=== PATIENT | female | born 1940 | race Caucasian/White ===

== ENCOUNTER 2018-07-24 12:33 | Day surgery (SDC) | payer MEDICARE, BC ==
[~2018-07-24 12:33] MED LIST: MIDAZOLAM 2 MG/2 ML SOL ONE
[2018-07-24 13:10] VITALS: RESP 16
[2018-07-24] MEDS: CYCLOPENTOLATE 1% SOL ONE ×3 (13:15→13:29)
[2018-07-24] MEDS ORDERED: KETOROLAC/HOME 0.5% SOL LEFTEYE ONE ×3 (13:15→13:29)
[2018-07-24] MEDS: PHENYLEPHRINE HCL 10% OPHTHAL SOL ONE ×3 (13:15→13:29)
[2018-07-24] MEDS: TROPICAMIDE 1% OPHTH SOL ONE ×3 (13:15→13:29)
[2018-07-24] MEDS ORDERED: MOXIFLOXACIN-HOME SOL LEFTEYE ONE ×2 (13:24→13:29)
[2018-07-24] MEDS: PROPARACAINE HCL 0.5% OPHTHALMIC SOL ONE ×2 (13:29→14:24)
[2018-07-24] MEDS ORDERED: LIDOCAINE HCL 2% MPF 10 ML SOL ONE (14:18)
[2018-07-24] MEDS ORDERED: BSS W/ 0.5 MG P.F. EPI 1 BOTTLE ONE (14:18)
[2018-07-24] MEDS ORDERED: POVIDONE IODINE 5% SOL ONE (14:18)
[2018-07-24] MEDS ORDERED: ACETAZOLAMIDE 250 MG PO ONE (14:32)
[2018-07-24] MEDS ORDERED: LABETALOL HYDROCHLORIDE 5 MG/ML SOL IV ONE (14:43)
[2018-07-24] MEDS ORDERED: HYDRALAZINE HYDROCHLORIDE 20 MG/ML SOL ONE (14:46)
[2018-07-24 14:58] VITALS: PULSE 73; TEMP 97.3; O2SAT 98
[2018-07-24 15:16] VITALS: BP 152/70
== END 2018-07-24 15:34 | disposition home or self-care (01) | DRG 125 ==
LOC: SURG 12:33
PROVIDERS: ATTEND Ophthalmology
DX: H25.89 Other age-related cataract (principal); E11.9 Type 2 diabetes mellitus without complications
CPT/HCPCS: J0360; J2250; A9270-GY; J3490

== ENCOUNTER 2018-08-03 21:53 | Emergency (ER) | payer MEDICARE, BC ==
[2018-08-03 22:29] LABS: BASOPHILS % (AUTO) 2 % (0-3); EOSINOPHILS % (AUTO) 3 % (0-9); HEMATOCRIT 44 % (35-47); HEMOGLOBIN 14.4 gm/dl (12.0-15.5); LYMPHOCYTES % (AUTO) 45.4 % (10-50); MEAN CORPUSCULAR HEMOGLOBIN 30.5 pg (27.0-32.0); MEAN CORPUSCULAR HGB CONC 33.1 gm/dl (32.0-36.0); MEAN CORPUSCULAR VOLUME 92 fL (81-99); MONOCYTES % (AUTO) 12.8 % (0-12); NEUTROPHILS % (AUTO) 37.5 % (37-80)
[2018-08-03 22:38] LABS: CALCIUM 8.5 mg/dl (8.5-10.1); CARBON DIOXIDE 20.2 mEq/L (21-32); CREATININE 1.18 mg/dl (0.60-1.00); POTASSIUM 3.7 mMol/L (3.5-5.1); TOTAL PROTEIN 7.3 gm/dl (6.4-8.2)
[2018-08-03] MEDS ORDERED: SODIUM CHLORIDE 0.9% 500 ML 500 ML IV ONE ×2 (22:47→23:56)
[2018-08-03 22:54] LABS: APPEARANCE,URINE Slightly Cloudy; BILIRUBIN,URINE 1+ (NEGATIVE); COLOR,URINE Dark yellow; GLUCOSE, URINE (UA) NEGATIVE (NEGATIVE); KETONES,URINE NEGATIVE (NEGATIVE); LEUKOCYTE ESTERASE ,URINE NEGATIVE (NEGATIVE); NITRATE,URINE NEGATIVE (NEGATIVE); OCCULT BLOOD,URINE NEGATIVE (NEG-TRACE); UROBILINOGEN,URINE 0.2 (0.2-1.0 EU)
[2018-08-03 22:57] LABS: ICTOTEST,URINE NEGATIVE (NEGATIVE)
[2018-08-03 23:04] LABS: BACTERIA 3+ (< 1+); CRYSTALS NEGATIVE (0-3 AVE/HPF); RBC,URINE 0-1 (0-3AV/HPF)
[2018-08-04 01:03] VITALS: BP 143/75; PULSE 61; RESP 23; O2SAT 92
[2018-08-04 01:04] VITALS: TEMP 96.7
== END 2018-08-04 00:39 | disposition home or self-care (01) | DRG 153 ==
LOC: ED 21:53
DX: J11.1 Influenza due to unidentified influenza virus with other respiratory manifestations (principal); R53.1 Weakness
CPT/HCPCS: 71046; 80053; 81001; 82962; 83880; 85025; 93005; 96365; 99283; 99285

== ENCOUNTER 2019-04-08 08:01 | Inpatient (IN) | payer MEDICARE, BC ==
[2019-04-08] MEDS ORDERED: PROMETHAZINE HYDROCHLORIDE 25 MG/ML SOL IV ONE (08:24)
[2019-04-08] MEDS ORDERED: PROMETHAZINE HYDROCHLORIDE 25 MG/ML SOL ONE (08:25)
[2019-04-08] MEDS: SODIUM CHLORIDE 0.9% FLUSH 10 ML SOL IV PRN ×2 (08:30→08:38)
[2019-04-08] MEDS ORDERED: HYDROMORPHONE 1 MG/ML SYRINGE IV PRN ×2 (08:32→19:09)
[2019-04-08] MEDS ORDERED: HYDROMORPHONE 1 MG/ML SYRINGE ONE (08:33)
[2019-04-08 09:44] LABS: BASOPHILS % (AUTO) 1 % (0-3); EOSINOPHILS % (AUTO) 3 % (0-9); HEMATOCRIT 45 % (35-47); HEMOGLOBIN 14.6 gm/dl (12.0-15.5); LYMPHOCYTES % (AUTO) 50.5 % (10-50); MEAN CORPUSCULAR HGB CONC 32.6 gm/dl (32.0-36.0); MEAN CORPUSCULAR VOLUME 92 fL (81-99); MONOCYTES % (AUTO) 8.8 % (0-12); NEUTROPHILS % (AUTO) 36.3 % (37-80)
[2019-04-08 10:00] LABS: ALBUMIN 3.3 gm/dl (3.4-5.0); BILIRUBIN,TOTAL 0.5 mg/dl (0.2-1.0); CALCIUM 8.8 mg/dl (8.5-10.1); CARBON DIOXIDE 25.7 mEq/L (21-32); CREATININE 0.73 mg/dl (0.60-1.00); POTASSIUM 3.8 mMol/L (3.5-5.1); TOTAL PROTEIN 7.1 gm/dl (6.4-8.2)
[2019-04-08] MEDS ORDERED: SODIUM CHLORIDE 0.9% 1000ML 1,000 ML IV ONE (12:05)
[2019-04-08] MEDS ORDERED: ONDANSETRON HCL 4 MG/2 ML SOL IV PRN (14:29)
[2019-04-08] MEDS ORDERED: ENOXAPARIN 40 MG SOL SC ONE (14:46)
[2019-04-08] MEDS: APAP/HYDROCODONE 1 EACH TABLET PO PRN ×2 (14:51→20:10)
[2019-04-08] MEDS: SODIUM CHLORIDE 0.9% FLUSH 10 ML SOL IV SCH ×2 (14:54→23:06)
[2019-04-08] MEDS: ENOXAPARIN 40 MG SOL SC SCH (14:54)
[2019-04-09] MEDS: APAP/HYDROCODONE 1 EACH TABLET PO PRN ×5 (01:07→20:35)
[2019-04-09] MEDS: LEVOTHYROXINE SODIUM 50 MCG TAB PO SCH (06:17)
[2019-04-09] MEDS: SODIUM CHLORIDE 0.9% FLUSH 10 ML SOL IV SCH ×3 (06:18→22:49)
[2019-04-09 08:39] LABS: BASOPHILS % (AUTO) 1 % (0-3); EOSINOPHILS % (AUTO) 2 % (0-9); HEMATOCRIT 38 % (35-47); HEMOGLOBIN 12.2 gm/dl (12.0-15.5); LYMPHOCYTES % (AUTO) 48.2 % (10-50); MEAN CORPUSCULAR HEMOGLOBIN 30.2 pg (27.0-32.0); MEAN CORPUSCULAR HGB CONC 32.5 gm/dl (32.0-36.0); MEAN CORPUSCULAR VOLUME 93 fL (81-99); MONOCYTES % (AUTO) 14.2 % (0-12); NEUTROPHILS % (AUTO) 34.9 % (37-80)
[2019-04-09] MEDS: GLIMEPIRIDE 2 MG TAB PO SCH (08:46)
[2019-04-09] MEDS: LISINOPRIL 20 MG TAB PO SCH (08:46)
[2019-04-09] MEDS: SODIUM CHLORIDE 0.9% FLUSH 10 ML SOL IV PRN (08:46)
[2019-04-09] MEDS: ENOXAPARIN 40 MG SOL SC SCH (08:48)
[2019-04-09 08:52] LABS: CALCIUM 8.1 mg/dl (8.5-10.1); CREATININE 0.84 mg/dl (0.60-1.00); POTASSIUM 4.2 mMol/L (3.5-5.1)
[2019-04-09 08:57] LABS: CARBON DIOXIDE 26.9 mEq/L (21-32)
[2019-04-09] MEDS ORDERED: ENOXAPARIN 40 MG SOL SC SCH (09:00)
[2019-04-09] MEDS: SENNOSIDES A AND B 8.6 MG TAB PO SCH ×2 (09:38→20:35)
[2019-04-09] MEDS ORDERED: APAP/HYDROCODONE 1 EACH TABLET PO PRN (13:28)
[2019-04-10] MEDS: APAP/HYDROCODONE 1 EACH TABLET PO PRN ×5 (01:16→21:14)
[2019-04-10] MEDS: SODIUM CHLORIDE 0.9% FLUSH 10 ML SOL IV SCH ×3 (06:10→23:56)
[2019-04-10] MEDS: LEVOTHYROXINE SODIUM 50 MCG TAB PO SCH (06:10)
[2019-04-10 07:14] LABS: BASOPHILS % (AUTO) 1 % (0-3); EOSINOPHILS % (AUTO) 2 % (0-9); HEMATOCRIT 37 % (35-47); HEMOGLOBIN 12.2 gm/dl (12.0-15.5); LYMPHOCYTES % (AUTO) 42.3 % (10-50); MEAN CORPUSCULAR HEMOGLOBIN 30.8 pg (27.0-32.0); MEAN CORPUSCULAR VOLUME 93 fL (81-99); MONOCYTES % (AUTO) 13.7 % (0-12); NEUTROPHILS % (AUTO) 40.8 % (37-80)
[2019-04-10 07:24] LABS: CALCIUM 8.2 mg/dl (8.5-10.1); CREATININE 0.8 mg/dl (0.60-1.00); POTASSIUM 4.2 mMol/L (3.5-5.1)
[2019-04-10] MEDS: LISINOPRIL 20 MG TAB PO SCH (09:39)
[2019-04-10] MEDS: GLIMEPIRIDE 2 MG TAB PO SCH (09:39)
[2019-04-10] MEDS: SENNOSIDES A AND B 8.6 MG TAB PO SCH ×2 (09:39→20:01)
[2019-04-10] MEDS: ENOXAPARIN 40 MG SOL SC SCH (09:40)
[2019-04-10] MEDS: SODIUM CHLORIDE 0.9% FLUSH 10 ML SOL IV PRN (09:41)
[2019-04-11 02:53] VITALS: RESP 18
[2019-04-11] MEDS: LEVOTHYROXINE SODIUM 50 MCG TAB PO SCH (06:23)
[2019-04-11] MEDS: SODIUM CHLORIDE 0.9% FLUSH 10 ML SOL IV SCH (06:23)
[2019-04-11 07:58] VITALS: BP 114/68; TEMP 99
[2019-04-11] MEDS: GLIMEPIRIDE 2 MG TAB PO SCH (08:41)
[2019-04-11] MEDS: ENOXAPARIN 40 MG SOL SC SCH (08:42)
[2019-04-11] MEDS: SENNOSIDES A AND B 8.6 MG TAB PO SCH (08:42)
[2019-04-11] MEDS: LISINOPRIL 20 MG TAB PO SCH (08:42)
[2019-04-11 09:59] VITALS: PULSE 81; O2SAT 98
== END 2019-04-11 13:32 | disposition swing bed (61) | DRG 563 ==
LOC: ED 08:01 → ACUTE CARE 12:28
PROVIDERS: ADMIT Family Medicine; ATTEND Family Medicine
PROC: F01ZBFZ Bed Mobility Assessment using Assistive, Adaptive, Supportive or Protective Equipment (ICD-10-PCS; principal; 2019-04-08)
PROC: F01K0FZ Muscle Performance Assessment of Musculoskeletal System - Upper Back / Upper Extremity using Assistive, Adaptive, Supportive or Protective Equipment (ICD-10-PCS; 2019-04-09)
PROC: F01K5YZ Range of Motion and Joint Integrity Assessment of Musculoskeletal System - Upper Back / Upper Extremity using Other Equipment (ICD-10-PCS; 2019-04-09)
DX: S42.012A Anterior displaced fracture of sternal end of left clavicle, initial encounter for closed fracture (principal); S82.141A Displaced bicondylar fracture of right tibia, initial encounter for closed fracture; S72.414A Nondisplaced unspecified condyle fracture of lower end of right femur, initial encounter for closed fracture; W10.8XXA Fall (on) (from) other stairs and steps, initial encounter; M25.512 Pain in left shoulder; M25.561 Pain in right knee; R40.2362 Coma scale, best motor response, obeys commands, at arrival to emergency department; R40.2142 Coma scale, eyes open, spontaneous, at arrival to emergency department; R40.2252 Coma scale, best verbal response, oriented, at arrival to emergency department; E11.9 Type 2 diabetes mellitus without complications; I10 Essential (primary) hypertension; E03.9 Hypothyroidism, unspecified; M79.641 Pain in right hand; S62.511A Displaced fracture of proximal phalanx of right thumb, initial encounter for closed fracture; W10.9XXA Fall (on) (from) unspecified stairs and steps, initial encounter
CPT/HCPCS: 36415; 70450; 71250; 72125; 73130; 73562; 73721; 74176; 80048; 80053; 82962; 85025; 93005; 94150; 94640; 94762; 96365; 96374; 96375; 99223; 99291; G0390; J1650; J2550; A4450; A9270-GY; J1170; L1830

== ENCOUNTER 2019-04-11 11:06 | Inpatient (IN) | payer MEDICARE, BC ==
[2019-04-11] MEDS ORDERED: ACETAMINOPHEN 500 MG 500 MG TAB PO PRN (14:23)
[2019-04-11] MEDS: APAP/HYDROCODONE 1 EACH TABLET PO PRN ×2 (14:56→21:33)
[2019-04-11] MEDS: SENNOSIDES A AND B 8.6 MG TAB PO SCH (21:32)
[2019-04-12] MEDS: LEVOTHYROXINE SODIUM 50 MCG TAB PO SCH (06:11)
[2019-04-12] MEDS: APAP/HYDROCODONE 1 EACH TABLET PO PRN ×2 (07:16→14:59)
[2019-04-12] MEDS: GLIMEPIRIDE 2 MG TAB PO SCH (08:21)
[2019-04-12] MEDS: SENNOSIDES A AND B 8.6 MG TAB PO SCH ×2 (08:21→20:46)
[2019-04-12] MEDS: LISINOPRIL 20 MG TAB PO SCH (08:21)
[2019-04-12] MEDS: ENOXAPARIN 40 MG SOL SC SCH (08:52)
[2019-04-12] MEDS: FISH OIL 500 MG CAP PO SCH ×2 (11:33→11:40)
[2019-04-12] MEDS: MULTIVITAMIN2 1 EA TAB PO SCH (11:41)
[2019-04-13] MEDS: APAP/HYDROCODONE 1 EACH TABLET PO PRN ×3 (01:25→23:45)
[2019-04-13] MEDS: LEVOTHYROXINE SODIUM 50 MCG TAB PO SCH (07:07)
[2019-04-13] MEDS: SENNOSIDES A AND B 8.6 MG TAB PO SCH ×2 (10:11→21:24)
[2019-04-13] MEDS: GLIMEPIRIDE 2 MG TAB PO SCH (10:11)
[2019-04-13] MEDS: FISH OIL 500 MG CAP PO SCH (10:11)
[2019-04-13] MEDS: LISINOPRIL 20 MG TAB PO SCH (10:11)
[2019-04-13] MEDS: ENOXAPARIN 40 MG SOL SC SCH (10:12)
[2019-04-13] MEDS: MULTIVITAMIN2 1 EA TAB PO SCH (11:48)
[2019-04-14] MEDS: LEVOTHYROXINE SODIUM 50 MCG TAB PO SCH (06:02)
[2019-04-14] MEDS: ENOXAPARIN 40 MG SOL SC SCH (08:59)
[2019-04-14] MEDS: GLIMEPIRIDE 2 MG TAB PO SCH (09:01)
[2019-04-14] MEDS: APAP/HYDROCODONE 1 EACH TABLET PO PRN ×2 (09:01→22:29)
[2019-04-14] MEDS: SENNOSIDES A AND B 8.6 MG TAB PO SCH ×2 (09:01→22:24)
[2019-04-14] MEDS: FISH OIL 500 MG CAP PO SCH (09:02)
[2019-04-14] MEDS: LISINOPRIL 20 MG TAB PO SCH (09:02)
[2019-04-14] MEDS ORDERED: APAP/HYDROCODONE 1 EACH TABLET PO ONE (11:57)
[2019-04-14] MEDS: MULTIVITAMIN2 1 EA TAB PO SCH (12:35)
[2019-04-15] MEDS: LEVOTHYROXINE SODIUM 50 MCG TAB PO SCH (06:45)
[2019-04-15] MEDS: APAP/HYDROCODONE 1 EACH TABLET PO PRN ×4 (06:47→21:18)
[2019-04-15] MEDS: GLIMEPIRIDE 2 MG TAB PO SCH (09:55)
[2019-04-15] MEDS: LISINOPRIL 20 MG TAB PO SCH (09:55)
[2019-04-15] MEDS: ENOXAPARIN 40 MG SOL SC SCH (09:55)
[2019-04-15] MEDS: SENNOSIDES A AND B 8.6 MG TAB PO SCH ×2 (09:57→20:05)
[2019-04-15] MEDS: FISH OIL 500 MG CAP PO SCH (11:46)
[2019-04-15] MEDS: MULTIVITAMIN2 1 EA TAB PO SCH (11:46)
[2019-04-16] MEDS: LEVOTHYROXINE SODIUM 50 MCG TAB PO SCH (06:07)
[2019-04-16] MEDS: APAP/HYDROCODONE 1 EACH TABLET PO PRN ×4 (06:07→20:07)
[2019-04-16] MEDS: ENOXAPARIN 40 MG SOL SC SCH (08:45)
[2019-04-16] MEDS: FISH OIL 500 MG CAP PO SCH (08:48)
[2019-04-16] MEDS: GLIMEPIRIDE 2 MG TAB PO SCH (08:49)
[2019-04-16] MEDS: LISINOPRIL 20 MG TAB PO SCH (08:49)
[2019-04-16] MEDS: SENNOSIDES A AND B 8.6 MG TAB PO SCH ×2 (08:50→20:07)
[2019-04-16] MEDS: MULTIVITAMIN2 1 EA TAB PO SCH (12:09)
[2019-04-17] MEDS: APAP/HYDROCODONE 1 EACH TABLET PO PRN ×4 (01:08→20:44)
[2019-04-17] MEDS: LEVOTHYROXINE SODIUM 50 MCG TAB PO SCH (06:27)
[2019-04-17] MEDS: FISH OIL 500 MG CAP PO SCH (08:52)
[2019-04-17] MEDS: LISINOPRIL 20 MG TAB PO SCH (08:53)
[2019-04-17] MEDS: GLIMEPIRIDE 2 MG TAB PO SCH (08:53)
[2019-04-17] MEDS: SENNOSIDES A AND B 8.6 MG TAB PO SCH ×2 (08:54→20:41)
[2019-04-17] MEDS: ENOXAPARIN 40 MG SOL SC SCH (08:57)
[2019-04-17] MEDS: AIRBORNE PO SCH ×3 (09:43→20:41)
[2019-04-17] MEDS: MULTIVITAMIN2 1 EA TAB PO SCH (12:18)
[2019-04-18] MEDS: APAP/HYDROCODONE 1 EACH TABLET PO PRN ×4 (03:59→20:48)
[2019-04-18] MEDS: LEVOTHYROXINE SODIUM 50 MCG TAB PO SCH (06:32)
[2019-04-18] MEDS: GLIMEPIRIDE 2 MG TAB PO SCH (08:49)
[2019-04-18] MEDS: FISH OIL 500 MG CAP PO SCH (08:49)
[2019-04-18] MEDS: LISINOPRIL 20 MG TAB PO SCH (08:49)
[2019-04-18] MEDS: AIRBORNE PO SCH ×3 (08:50→20:21)
[2019-04-18] MEDS: ENOXAPARIN 40 MG SOL SC SCH (08:54)
[2019-04-18] MEDS: SENNOSIDES A AND B 8.6 MG TAB PO SCH (08:55)
[2019-04-18] MEDS ORDERED: SENNOSIDES A AND B 8.6 MG TAB PO PRN (11:19)
[2019-04-18] MEDS: MULTIVITAMIN2 1 EA TAB PO SCH (12:06)
[2019-04-19] MEDS: APAP/HYDROCODONE 1 EACH TABLET PO PRN ×3 (00:31→20:11)
[2019-04-19] MEDS: LEVOTHYROXINE SODIUM 50 MCG TAB PO SCH (06:43)
[2019-04-19] MEDS: LISINOPRIL 20 MG TAB PO SCH (08:28)
[2019-04-19] MEDS: GLIMEPIRIDE 2 MG TAB PO SCH (08:28)
[2019-04-19] MEDS: FISH OIL 500 MG CAP PO SCH (08:28)
[2019-04-19] MEDS: ENOXAPARIN 40 MG SOL SC SCH (08:29)
[2019-04-19] MEDS: AIRBORNE PO SCH ×3 (08:32→20:12)
[2019-04-19] MEDS: MULTIVITAMIN2 1 EA TAB PO SCH (12:27)
[2019-04-20] MEDS: APAP/HYDROCODONE 1 EACH TABLET PO PRN ×4 (01:59→19:40)
[2019-04-20] MEDS: LEVOTHYROXINE SODIUM 50 MCG TAB PO SCH (07:14)
[2019-04-20] MEDS: FISH OIL 500 MG CAP PO SCH (08:35)
[2019-04-20] MEDS: GLIMEPIRIDE 2 MG TAB PO SCH (08:35)
[2019-04-20] MEDS: ENOXAPARIN 40 MG SOL SC SCH (08:36)
[2019-04-20] MEDS: LISINOPRIL 20 MG TAB PO SCH (08:37)
[2019-04-20] MEDS: AIRBORNE PO SCH ×4 (08:37→22:51)
[2019-04-20] MEDS: MULTIVITAMIN2 1 EA TAB PO SCH (12:30)
[2019-04-21] MEDS: APAP/HYDROCODONE 1 EACH TABLET PO PRN ×3 (01:01→21:11)
[2019-04-21] MEDS: LEVOTHYROXINE SODIUM 50 MCG TAB PO SCH (06:09)
[2019-04-21] MEDS: FISH OIL 500 MG CAP PO SCH (09:22)
[2019-04-21] MEDS: GLIMEPIRIDE 2 MG TAB PO SCH (09:22)
[2019-04-21] MEDS: LISINOPRIL 20 MG TAB PO SCH (09:23)
[2019-04-21] MEDS: AIRBORNE PO SCH ×3 (09:24→20:15)
[2019-04-21] MEDS: ENOXAPARIN 40 MG SOL SC SCH (09:29)
[2019-04-21] MEDS: MULTIVITAMIN2 1 EA TAB PO SCH (14:04)
[2019-04-22] MEDS: LEVOTHYROXINE SODIUM 50 MCG TAB PO SCH (07:05)
[2019-04-22] MEDS: GLIMEPIRIDE 2 MG TAB PO SCH (08:04)
[2019-04-22] MEDS: LISINOPRIL 20 MG TAB PO SCH (08:04)
[2019-04-22] MEDS: FISH OIL 500 MG CAP PO SCH (08:05)
[2019-04-22] MEDS: APAP/HYDROCODONE 1 EACH TABLET PO PRN ×2 (08:05→20:13)
[2019-04-22] MEDS: ENOXAPARIN 40 MG SOL SC SCH (08:06)
[2019-04-22] MEDS: AIRBORNE PO SCH ×3 (08:08→20:14)
[2019-04-22] MEDS: MULTIVITAMIN2 1 EA TAB PO SCH (12:08)
[2019-04-23] MEDS: APAP/HYDROCODONE 1 EACH TABLET PO PRN ×4 (03:22→20:08)
[2019-04-23] MEDS: LEVOTHYROXINE SODIUM 50 MCG TAB PO SCH (06:50)
[2019-04-23] MEDS: GLIMEPIRIDE 2 MG TAB PO SCH (09:38)
[2019-04-23] MEDS: FISH OIL 500 MG CAP PO SCH (09:39)
[2019-04-23] MEDS: LISINOPRIL 20 MG TAB PO SCH (09:39)
[2019-04-23] MEDS: AIRBORNE PO SCH ×3 (09:40→20:08)
[2019-04-23] MEDS: MULTIVITAMIN2 1 EA TAB PO SCH (11:40)
[2019-04-24] MEDS: APAP/HYDROCODONE 1 EACH TABLET PO PRN ×4 (01:04→20:47)
[2019-04-24] MEDS: LEVOTHYROXINE SODIUM 50 MCG TAB PO SCH (06:25)
[2019-04-24] MEDS: AIRBORNE PO SCH ×3 (08:33→20:47)
[2019-04-24] MEDS: LISINOPRIL 20 MG TAB PO SCH (08:33)
[2019-04-24] MEDS: GLIMEPIRIDE 2 MG TAB PO SCH (08:34)
[2019-04-24] MEDS: FISH OIL 500 MG CAP PO SCH (08:34)
[2019-04-24] MEDS: MULTIVITAMIN2 1 EA TAB PO SCH (12:07)
[2019-04-25] MEDS: APAP/HYDROCODONE 1 EACH TABLET PO PRN ×4 (01:38→20:13)
[2019-04-25] MEDS: LEVOTHYROXINE SODIUM 50 MCG TAB PO SCH (06:15)
[2019-04-25] MEDS: LISINOPRIL 20 MG TAB PO SCH (08:48)
[2019-04-25] MEDS: GLIMEPIRIDE 2 MG TAB PO SCH (08:48)
[2019-04-25] MEDS: FISH OIL 500 MG CAP PO SCH (08:48)
[2019-04-25] MEDS: AIRBORNE PO SCH ×3 (08:49→20:15)
[2019-04-25] MEDS: MULTIVITAMIN2 1 EA TAB PO SCH (12:51)
[2019-04-26] MEDS: LEVOTHYROXINE SODIUM 50 MCG TAB PO SCH (06:34)
[2019-04-26] MEDS: APAP/HYDROCODONE 1 EACH TABLET PO PRN ×2 (08:22→19:44)
[2019-04-26] MEDS: AIRBORNE PO SCH ×3 (09:27→22:55)
[2019-04-26] MEDS: GLIMEPIRIDE 2 MG TAB PO SCH (09:27)
[2019-04-26] MEDS: FISH OIL 500 MG CAP PO SCH (09:28)
[2019-04-26] MEDS: LISINOPRIL 20 MG TAB PO SCH (09:28)
[2019-04-26] MEDS: MULTIVITAMIN2 1 EA TAB PO SCH (13:16)
[2019-04-27] MEDS: APAP/HYDROCODONE 1 EACH TABLET PO PRN ×2 (04:29→20:28)
[2019-04-27] MEDS: LEVOTHYROXINE SODIUM 50 MCG TAB PO SCH (06:33)
[2019-04-27] MEDS: GLIMEPIRIDE 2 MG TAB PO SCH (09:27)
[2019-04-27] MEDS: MULTIVITAMIN2 1 EA TAB PO SCH (09:27)
[2019-04-27] MEDS: FISH OIL 500 MG CAP PO SCH (09:27)
[2019-04-27] MEDS: AIRBORNE PO SCH ×3 (09:28→20:28)
[2019-04-27] MEDS: LISINOPRIL 20 MG TAB PO SCH (09:28)
[2019-04-28 07:22] VITALS: RESP 18
[2019-04-28] MEDS: LEVOTHYROXINE SODIUM 50 MCG TAB PO SCH (07:27)
[2019-04-28] MEDS: APAP/HYDROCODONE 1 EACH TABLET PO PRN ×2 (08:10→21:03)
[2019-04-28] MEDS: GLIMEPIRIDE 2 MG TAB PO SCH (09:00)
[2019-04-28] MEDS: LISINOPRIL 20 MG TAB PO SCH (09:00)
[2019-04-28] MEDS: MULTIVITAMIN2 1 EA TAB PO SCH (09:00)
[2019-04-28] MEDS: FISH OIL 500 MG CAP PO SCH (09:01)
[2019-04-28] MEDS: AIRBORNE PO SCH ×2 (09:02→21:03)
[2019-04-29] MEDS: LEVOTHYROXINE SODIUM 50 MCG TAB PO SCH (08:00)
[2019-04-29 08:05] VITALS: BP 134/77; PULSE 66; TEMP 99; O2SAT 95
[2019-04-29] MEDS: GLIMEPIRIDE 2 MG TAB PO SCH (08:05)
[2019-04-29] MEDS: LISINOPRIL 20 MG TAB PO SCH (08:05)
[2019-04-29] MEDS: MULTIVITAMIN2 1 EA TAB PO SCH ×2 (08:06→08:09)
[2019-04-29] MEDS: AIRBORNE PO SCH (08:06)
[2019-04-29] MEDS: FISH OIL 500 MG CAP PO SCH (08:07)
[2019-04-29] MEDS: APAP/HYDROCODONE 1 EACH TABLET PO PRN (09:41)
== END 2019-04-29 10:35 | DRG 561 ==
LOC: ACUTE CARE 13:37
PROVIDERS: ADMIT Family Medicine; ATTEND Family Medicine
DX: S42.012D Anterior displaced fracture of sternal end of left clavicle, subsequent encounter for fracture with routine healing (principal); S82.141D Displaced bicondylar fracture of right tibia, subsequent encounter for closed fracture with routine healing; S72.414D Nondisplaced unspecified condyle fracture of lower end of right femur, subsequent encounter for closed fracture with routine healing; S62.511D Displaced fracture of proximal phalanx of right thumb, subsequent encounter for fracture with routine healing; E11.9 Type 2 diabetes mellitus without complications; E03.9 Hypothyroidism, unspecified; I10 Essential (primary) hypertension; W10.9XXD Fall (on) (from) unspecified stairs and steps, subsequent encounter
CPT/HCPCS: 82962; 94150; 94640; J1650; A9270-GY

== ENCOUNTER 2019-05-16 13:05 | Outpatient (CLI) | payer MEDICARE, BC ==
[2019-04-29 08:05] VITALS: O2SAT 95
== END 2019-05-16 13:06 | disposition home or self-care (01) | DRG 561 ==
LOC: CONVCARE 13:05
PROVIDERS: ATTEND Orthopaedic Surgery
DX: S62.511D Displaced fracture of proximal phalanx of right thumb, subsequent encounter for fracture with routine healing (principal); S53.21XD Traumatic rupture of right radial collateral ligament, subsequent encounter; S80.01XD Contusion of right knee, subsequent encounter
CPT/HCPCS: 73000; 73130

== ENCOUNTER 2019-06-21 14:11 | Emergency (ER) | payer MEDICARE, BC ==
[2019-06-21 14:20] VITALS: RESP 20; TEMP 97.8
[2019-06-21 14:31] VITALS: BP 145/83; PULSE 78; O2SAT 92
[2019-06-21 15:23] LABS: BASOPHILS % (AUTO) 1 % (0-3); EOSINOPHILS % (AUTO) 1 % (0-9); HEMATOCRIT 45 % (35-47); HEMOGLOBIN 14.2 gm/dl (12.0-15.5); LYMPHOCYTES % (AUTO) 47.9 % (10-50); MEAN CORPUSCULAR HEMOGLOBIN 29.9 pg (27.0-32.0); MEAN CORPUSCULAR HGB CONC 31.3 gm/dl (32.0-36.0); MEAN CORPUSCULAR VOLUME 96 fL (81-99); MONOCYTES % (AUTO) 11.7 % (0-12); NEUTROPHILS % (AUTO) 38.9 % (37-80)
[2019-06-21 15:35] LABS: ALBUMIN 3.4 gm/dl (3.4-5.0); BILIRUBIN,TOTAL 0.7 mg/dl (0.2-1.0); CALCIUM 8.7 mg/dl (8.5-10.1); CREATININE 0.93 mg/dl (0.60-1.00); TOTAL PROTEIN 7.6 gm/dl (6.4-8.2)
[2019-06-21 15:40] LABS: CARBON DIOXIDE 26.7 mEq/L (21-32)
== END 2019-06-21 16:25 | disposition home or self-care (01) | DRG 195 ==
LOC: ED 14:11
DX: J18.9 Pneumonia, unspecified organism (principal); R50.9 Fever, unspecified; R53.1 Weakness; R06.02 Shortness of breath
CPT/HCPCS: 36415; 71045; 80053; 85025; 99283

== ENCOUNTER 2019-06-23 14:35 | Observation (INO) | payer MEDICARE, BC | END 2019-06-25 13:20 | LOC: ED 14:35 → ACUTE CARE 16:37 ==